=== PATIENT | male | born 1975 | race Native Hawaiian/Other Pacific Islander ===

== ENCOUNTER 2019-12-30 11:42 | Outpatient (CLI) | payer OTHER, SELFPAY ==
--- NOTE | ~2019-12-30 | XR_ITS ---
XR knee LT min 4V DATE: 12/30/2019 12:13 INDICATION: Pain for one week. No injury. TECHNIQUE: Weightbearing AP and PA views. Aynor view. Lateral view. COMPARISON: None FINDINGS: There is mild to moderate loss of height of the medial compartment joint space. No fracture or dislocation or joint effusion. No periosteal reaction or bone destruction, radiopaque intra-articular loose body or chondrocalcinosis. IMPRESSION: Mild to moderate loss of height of medial compartment joint space Reviewed, dictated and finalized at location A.
== END 2019-12-30 11:43 | disposition home or self-care (01) ==
PROVIDERS: PCP Internal Medicine; Visit Provider Clinical Nurse Specialist
DX: M25.569 Pain in unspecified knee (principal)
CPT/HCPCS: 73564

== ENCOUNTER 2022-12-01 10:12 | Emergency (ER) | payer OTHER, SELFPAY ==
--- NOTE | 2022-12-01 10:16 | ED.MALEGU ---
HPI - Male Genitourinary General Chief complaint: Urogenital-Male Stated complaint: Urinary Problem Time Seen by Provider: 12/01/22 10:39 Source: patient, RN notes reviewed and old records reviewed Mode of arrival: ambulatory Limitations: no limitations History of Present Illness HPI Narrative: [age] year presents to the [facility] with complaints urinary frequency since Sunday, 5 days. Denies any chance STD Reports right lower groin pain. No swelling, redness noted. No bulging. Onset (ago): day(s) (5) Related Data Allergies Allergy/AdvReac Type Severity Reaction Status Date / Time clavulanic acid Allergy Mild Abdominal Verified 09/25/19 11:46 Pain amoxicillin [From Augmentin] Allergy upset Verified 12/16/19 10:05 stomach Review of Systems Review of Systems: All systems reviewed & are unremarkable except as noted in HPI and below Constitutional: Constitutional: Reports no additional constitutional complaints Eyes: Eyes: Reports no additional eye complaints ENT: Reports system reviewed and no additional complaints, except as documented Cardiovascular: Cardiovascular: Reports no additional cardiovascular complaints, Denies chest pain and Denies dyspnea Respiratory: Respiratory: Reports no additional respiratory complaints, Denies chest congestion, Denies cough and Denies dyspnea Gastrointestinal: Gastrointestinal: Reports as per HPI, Denies abdominal pain, Denies nausea and Denies vomiting Genitourinary: Genitourinary: Reports as per HPI Musculoskeletal: Musculoskeletal: Reports no additional musculoskeletal complaints Integumentary/Breasts: Skin/Breast: Reports system reviewed and no additional complaints, except as docu Neurologic: Reports system reviewed and no additional complaints, except as documented Psychiatric: Psychiatric: Reports no additional psychiatric complaints Allergic/Immunologic: Allergic/Immunologic: Reports no additional allergic/immunologic complaints [facility] Past Medical History Medical History Abnormal serum iron level (05/18/21) iron elevated at 290 with normal under 180 on 05/18/2021 . Repeat labs on with iron 161 with 56% saturation and ferritin elevated at 502. Anxiety Asthma Bilateral chronic knee pain BMI 30.0-30.9,adult BMI 31.0-31.9,adult BMI 32.0-32.9,adult Elevated liver enzymes GGT normal at 74, AST elevated at 83, ALT elevated at 87 on 05/18/2021 Elevated serum creatinine Encounter for prostate cancer screening PSA normal at 0.92 on 05/18/2021 HTN (hypertension) Hypersomnia Mild intermittent asthma in adult without complication Mixed hyperlipidemia total cholesterol 264, triglycerides 92, HDL 75, and LDL 169 on 05/18/2021 Polycythemia hemoglobin normal at 16.5 on 05/18/2021 Seasonal allergic rhinitis Sprain of left wrist Tibial plateau fracture, right plates and screws placed Social History Social History Smoking status: Never smoker Alcohol intake: current Alcohol use details: socially Substance use: never Substance use type: does not use Comments At the time of my signature, I reviewed and agree with the nursing past medical, surgical, social, and family history. There is no relevant family history pertinent to the patient complaint. Exam Const: General: cooperative, healthy appearing, comfortable, no acute distress, well developed, alert and well nourished Nutritional Appearance: well nourished Orientation/consciousness: patient oriented x3 Limitations: no limitations HENMT: Head: normal to inspection Ears: hearing grossly normal bilaterally and external ears normal Face/Nose/Sinus: Normal external nose present, Normal nares present, Normal nasal mucous membranes and turbinates present and normal facial exam Face and sinus: normal facial exam Eyes: General: appearance normal, both eyes and all related structu
[2022-12-01 10:29] VITALS: BP 120/77; PULSE 66; RESP 18; TEMP 36.8; O2SAT 99
== END 2022-12-01 10:55 | disposition home or self-care (01) ==
PROVIDERS: Emergency Provider Nurse Practitioner; PCP Family Medicine
DX: R35.0 Frequency of micturition (principal); R10.31 Right lower quadrant pain; I10 Essential (primary) hypertension; J45.909 Unspecified asthma, uncomplicated; E78.2 Mixed hyperlipidemia
CPT/HCPCS: 81003; 99212; G0463

== ENCOUNTER 2023-02-06 08:33 | Emergency (ER) | payer OTHER, SELFPAY ==
[2023-02-06 08:47] VITALS: BP 139/97; PULSE 77; RESP 16; TEMP 37.2; O2SAT 100
--- NOTE | 2023-02-06 09:13 | ED.GENADULT ---
HPI - General Adult General Chief complaint: Extremity Injury, Lower Stated complaint: Left Leg Pain Source: patient Mode of arrival: ambulatory Limitations: no limitations History of Present Illness HPI narrative: Patient presents for evaluation of pain in the left lower extremity. He indicates he was doing lifts last week and feels like he strained something. 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 He denies any low back pain. Pain starts in the left buttock and radiates down posterior aspect of the LLE. Pain is a fire sensation that he rates 12 on scale of 1-10. Denies paresthesias. No urinary symptoms. He has a hx of sciatica. He has an appt with ortho on 02/13/23. He has tried taking aleve without considerable improvement in his pain thereafter. Related Data Allergies Allergy/AdvReac Type Severity Reaction Status Date / Time clavulanic acid Allergy Mild Abdominal Verified 12/02/22 16:24 Pain amoxicillin [From Augmentin] Allergy upset Verified 12/02/22 16:24 stomach Review of Systems Review of Systems: CONSTITUTIONAL: Denies fever, chills, or sweats. EYES: Denies visual changes, redness, or discharge. ENT: Denies rhinorrhea, congestion, sore throat, or otalgia. CARDIOVASCULAR: Denies chest pain, palpitations, or edema. RESPIRATORY: Denies cough or dyspnea. GASTROINTESTINAL: Denies abdominal pain, nausea, vomiting, or diarrhea. GENITOURINARY: Denies dysuria or hematuria. SKIN: Denies rash or itching. MUSCULOSKELETAL: Reports pain in left buttock that radiates down the left lower extremity. Denies any low back pain. NEUROLOGIC: Denies headache, numbness, dizziness, or weakness. PSYCHIATRIC: Denies anxiety or depression. [facility] Past Medical History Medical History (Updated 02/06/23 @ 09:16 by Olu Nina, [facility], ) Abnormal serum iron level (05/18/21) iron elevated at 290 with normal under 180 on 05/18/2021 . Repeat labs on with iron 161 with 56% saturation and ferritin elevated at 502. Anxiety Asthma Bilateral chronic knee pain BMI 30.0-30.9,adult BMI 31.0-31.9,adult BMI 32.0-32.9,adult Elevated liver enzymes GGT normal at 74, AST elevated at 83, ALT elevated at 87 on 05/18/2021 Elevated serum creatinine Encounter for prostate cancer screening PSA normal at 0.92 on 05/18/2021 HTN (hypertension) Hypersomnia Mild intermittent asthma in adult without complication Mixed hyperlipidemia total cholesterol 264, triglycerides 92, HDL 75, and LDL 169 on 05/18/2021 Polycythemia hemoglobin normal at 16.5 on 05/18/2021 Sciatica, left side Seasonal allergic rhinitis Sprain of left wrist Tibial plateau fracture, right plates and screws placed Surgical History Surgical History History of femoral hernia repair Family History Family History Mother Family history non-contributory Social History Social History Smoking status: Never smoker Alcohol intake: current Alcohol use details: socially Substance use: never Substance use type: does not use Living arrangements: with family Gender identity (if verbalized by the patient): Male Sexual Orientation (if Verbalized by the Patient): Straight or Heterosexual Spiritual care concerns: No Exam Narrative: GENERAL: Well-appearing, well-nourished, and in no acute distress. HEAD: Normocephalic, atraumatic. EYES: PERRLA and EOMI. ENT: Nares clear, no rhinorrhea or epistaxis. Mucous membranes moist. Oropharynx without tonsillar hypertrophy exudate or other lesions. Bilateral TMs pearly acosta nonbulging NECK: Supple. No adenopathy or masses. No carotid bruits or JVD CHEST: Clear to auscultation. No respiratory distress. No wheezes rales or rhonchi HEART: Regular rate and rhythm. N
== END 2023-02-06 09:22 | disposition home or self-care (01) ==
PROVIDERS: Emergency Provider Nurse Practitioner; PCP Family Medicine
DX: M79.662 Pain in left lower leg (principal); M54.32 Sciatica, left side; J45.909 Unspecified asthma, uncomplicated; I10 Essential (primary) hypertension; D75.1 Secondary polycythemia
CPT/HCPCS: 99213; G0463

== ENCOUNTER → 2023-02-13 07:00 | Outpatient (CLI) | payer OTHER, SELFPAY ==
--- NOTE | ~2023-02-13 | XR_ITS ---
Lumbosacral Spine: AP, oblique, and lateral views Clinical History: Pain Findings: The normal lordotic curve is maintained. No fracture seen. Probable minimal grade 1 retroli sthesis of L3 over L4. There is moderate facet arthropathy at L4-L5 and L5-S1. The intervertebral dis c spaces are preserved. The sacroiliac joints are normally outlined. Impression: Minimal grade 1 retrolisthesis of L3 over L4. Moderate facet arthropathy at L4-L5 and L5-S1. Reviewed, dictated and finalized at location M. Impression: Minimal grade 1 retrolisthesis of L3 over L4. Moderate facet arthropathy at L4-L5 and L5-S1.
== END ==
PROVIDERS: PCP Family Medicine; Visit Provider Nurse Practitioner
DX: M54.50 Low back pain, unspecified (principal)
CPT/HCPCS: 72110